=== PATIENT | female | born 1985 | race Caucasian/White ===

== ENCOUNTER 2016-12-16 09:35 | Emergency (ER) | payer OTHER ==
[~2016-12-16] VITALS: Ht 154.9 cm; Wt 110.7 kg
[~2016-12-16 09:35] MED LIST: CEPHALEXIN500 M2; PROMETHAZINE D473 ML
[2016-12-16 09:41] VITALS: BP 122/71
--- NOTE | 2016-12-16 09:57 | NUR ---
PATIENT PRESENTS TO ED WITH CONGESTED SINUSES AND SWOLLEN TONSILS X1 DAY. PT STATES . DENIES N/V/D; SKIN IS PINK/WARM/DRY; AAOX4 WITH EVEN AND STEADY GAIT; LUNGS CLEAR BL; HR EVEN AND REGULAR; PT DENIES ANY FEVER, CP, SOB, OR COUGH AT THIS TIME; PATIENT STATES PAIN OF 0/10 AT THIS TIME; VSS; PATIENT POSITIONED FOR COMFORT; HOB ELEVATED; BEDRAILS UP X2; BED DOWN. ER MD MADE AWARE OF PT STATUS.
[2016-12-16 11:12] VITALS: BP 112/64
--- NOTE | 2016-12-16 11:13 | NUR ---
Patient discharged with v/s stable. Written and verbal after care instructions given and explained. Patient alert, oriented and verbalized understanding of instructions. Ambulatory with steady gait. All questions addressed prior to discharge. ID band removed. Patient advised to follow up with PMD. Rx of AMOXICILLIN, TYLENOL, SUDAFED given. Patient educated on indication of medication including possible reaction and side effects. Opportunity to ask questions provided and answered.
== END 2016-12-16 11:13 | disposition home or self-care (01) ==
LOC: MED 09:35
DX: J01.90 Acute sinusitis, unspecified (principal)

== ENCOUNTER 2017-07-05 21:01 | Emergency (ER) | payer OTHER ==
[~2017-07-05] VITALS: Ht 154.9 cm; Wt 102.5 kg
[2017-07-05 21:13] VITALS: BP 120/82
[2017-07-05 21:36] VITALS: BP 120/82
== END 2017-07-05 22:44 | disposition home or self-care (01) ==
LOC: MED 21:01
DX: J06.9 Acute upper respiratory infection, unspecified (principal); R03.0 Elevated blood-pressure reading, without diagnosis of hypertension